=== PATIENT | female | born 1975 | race American Indian/Alaskan Native ===

== ENCOUNTER 2016-06-18 10:37 | Outpatient (CLI) | payer BC ==
--- NOTE | 2016-06-19 08:20 | Vascular Lab Report ---
LOWER EXTREMITY VENOUS DUPLEX: REASON FOR EXAM: Bilateral edema. COMMENTS ON THE RIGHT: All veins visualized are freely compressible without evidence of internal echogenicity. Flow is spontaneous and phasic throughout. COMMENTS ON THE LEFT: All veins visualized are freely compressible without evidence of internal echogenicity. Flow is spontaneous and phasic throughout. IMPRESSION: No evidence of acute or chronic deep venous thrombosis in either lower extremity.
== END 2016-06-18 10:38 | disposition home or self-care (01) ==
LOC: VAS 10:37
PROVIDERS: ATTEND Obstetrics & Gynecology
DX: R60.0 Localized edema (principal)
CPT/HCPCS: 93970

== ENCOUNTER 2017-05-02 12:41 | Day surgery (SDC) | payer BC ==
--- NOTE | 2017-05-01 21:03 | History and Physical Report ---
History of Present Illness Date of examination: 04/30/17 Chief complaint: Abnormal vaginal bleeding, cervical polyp History of present illness: Past History : 3 Term Births: 2 Living Children: 2 Para: 2 Prev : 2 Aborta: 1 Spont. 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 of genital herpes: no Partner hx. of genital herpes: no Hx of STD: none Active Medications (reviewed today): IBUPROFEN 800 MG ORAL TABLET (IBUPROFEN) 1 po TID (PRN) PROBIOTIC CAPSULE (SACCHAROMYCES BOULARDII CAPS) Current Allergies (reviewed today): No known allergies Past Medical History: Reviewed history from 08/14/2016 and no changes required: (L) TOA (05/2016) [facility] CT guided drainage Past Surgical History: Reviewed history from 03/10/2013 and no changes required: C-sectionx2 Myomectomy cervical cerclage D&C: Family History Summary: Reviewed history Last on 08/14/2016 and no changes required:05/01/2017 Mother (biol.) - Has Family History of Thyroid Disease - Entered On: 09/22/2015 Other family member - Has No Family History of Biliary Tract Cancer - Entered On : 09/22/2015 Other family member - Has No Family History of Breast Cancer - Entered On: 2015 Other family member - Has No Family History of Brain Cancer - Entered On: 2015 Other family member - Has No Family History of Colon Cancer - Entered On: 2015 Other family member - Has No Family History of DVT/PE on OCP - Entered On: 2015 Other family member - Has No Family History of Kidney/Urinary Tract Cancer - Entered On: 09/22/2015 Other family member - Has No Family History of Ovarvian Cancer - Entered On: Other family member - Has No Family History of Pancreatic Cancer - Entered On: Other family member - Has No Family History of Stomach Cancer - Entered On: 09/21 Other family member - Has No Family History of Small Bowel Cancer - Entered On: 09/22/2015 Other family member - Has No Family History of Uterine Cancer - Entered On: 09/21 PGM - Has Family History Breast Cancer - Entered On: 04/29/2017 General Comments - FH: No Family History of Colon Cancer No Family History of Ovarvian Cancer No Family History of DVT/PE on OCP Mother adopted Social History: Reviewed history from 04/23/2017 and no changes required: Patient is Smoking History: Patient has never smoked. Risk Factors: PAP Smear History: Date of Last PAP Smear: 09/22/2015 Previous Tobacco Use: Signed On 09/04/2016 Smoked Tobacco Use: Never smoker Drug use: no Previous Alcohol Use: Signed On - 09/04/2016 Alcohol use: yes Type: occ Drinks per day: <1 Exercise: yes Times per week: 2 Dietary Counseling: pn yes PAP Smear History: Date of Last PAP Smear: 09/22/2015 Review of Systems General Denies fever, chills, sweats, anorexia, fatigue, weakness, malaise, weight loss and sleep disorder. Complains of abnormal vaginal bleeding. Denies vaginal discharge, incontinence, dysuria, hematuria, urinary frequency, amenorrhea, menorrhagia, pelvic pain, genital sores, decreased libido , painful periods, painful sex, urinary urgency, hot flashes, vaginal dryness, vaginal itching and vaginal odor. CV Denies chest pains, palpitations, syncope, dyspnea on exertion, orthopnea, PND and peripheral edema. Resp Denies cough, dyspnea at rest, excessive sputum, hemoptysis, wheezing and pleurisy. GI Denies nausea, vomiting, diarrhea, constipation, change in bowel habits, abdominal pain, melena, hematochezia, jaundice, gas/bloating, indigestion/ heartburn, dysphagia and odynophagia. Endo Denies cold intolerance, heat intolerance, polydipsia, polyphagia, polyuria and unusual weight change. Breast Denies left breast lump, right breast lump, nipple discharge, bloody discharge from nipple, breast pain, abnormal mammogram and breast enlargement. MS Denies back pain, joint pain, joint swelling, muscle cramps, muscle weakness, stiffness, arthritis, sciatica, restless legs, leg pain at night and leg pain with exertion. Derm Denies rash, itching, dryness and suspicious lesions. Neuro Denies paralysis, paresthesias, headache, seizures, tremors, vertigo, transient blindness, frequent falls, frequent headaches and difficulty walking. Psych Denies depression, anxiety, irritability and mood swings. Eyes Denies blurring, diplopia, irritation, discharge, vision loss, eye pain and photophobia. ENT Denies earache, ear discharge, tinnitus, decreased hearing, nasal congestion, nosebleeds, sore throat and hoarseness. Allergy Denies urticaria, allergic rash, hay fever and recurrent infections. Heme Denies abnormal bruising, bleeding and enlarged lymph nodes. Physical Exam Other Exams Abdomen: soft, non-tender, no masses, Skin: no ulcers, xanthomas Extremities: no clubbing, cyanosis, or edema Genitourinary Exam Vagina: scant blood , no active bleeding Cervix: large polyp protruding from cervix Uterus: normal size and position, midline, mobile Adnexa: no masses or tenderness Impression & Recommendations: Problem # 1: Other specified abnormal uterine and vaginal bleeding (ICD-626.8) (OCI26-Z92.8) Diagnosis explained to patient . Questions answered. Discussed with patient various medical and surgical therapies common for treatment: Hormonal/medical therapy,endometrial ablation or hysterectomy. She desires hysteroscopy D&C, excison of polyp and other indicated procedures. She declines ablation at this time, she was informed her bleeding my persist or recur. Patient voiced understanding and agrees with plan of care Consent reviewed and signed . The risks and alternatives for this surgery were reviewed with the patient. She was informed of possible bleeding, infection, injury to bowel, bladder, ureters or other adjacent organs. The patient was instructed/informed the following: The normal length of hospital stay for this procedure. Nothing to eat or drink 6hours prior to surgery. Clear liquids the starting the evening before surgery. Pre-op instruction sheets given. Wound care instructions given. Infection precautions reviewed, patient to call for any signs or symptoms of infection. The usual discomforts associated with this procedure were detailed. Proper use of pain medicines was reviewed. Patient was given ample opportunity to have all her questions answered before signing informed consent. Problem # 2: Cervical polyp (ICD-622.7) ([id number]-B46.1) Medications Added to Medication List This Visit: 1) Ibuprofen 800 Mg Oral Tablet (Ibuprofen) .... 1 po tid (prn) Medications and Allergies Allergies Allergy/AdvReac Type Severity Reaction Status Date / Time No Known Allergies Allergy Unverified 06/18/16 10:37 Home Medications Medication Instructions Recorded Confirmed Last Taken Type Lactobacillus Combination No.8 1 tab PO DAILY 04/29/17 04/29/17 Unknown History [Adult Probiotic] Assessment and Plan - Patient Problems (1) Abnormal uterine bleeding (AUB) Status: Acute (2) Cervical polyp Status: Acute
[~2017-05-02 12:41] MED LIST: ANCEF/STERILE WATER 2 GM/20 ML 2 GM/20 ML SYRINGE IV NR; NACL 0.9% 1000 ML 1,000 ML IV SCH; PEPCID PO NR; VERSED IV NR
[2017-05-02] MEDS ORDERED: ZOFRAN ONE (13:47)
[2017-05-02] MEDS ORDERED: DIPRIVAN 10 MG/ML IV ONE ×2 (13:47→15:37)
[2017-05-02] MEDS ORDERED: DECADRON ONE (13:47)
[2017-05-02] MEDS ORDERED: XYLOCAINE MPF 2% ONE (13:47)
[2017-05-02] MEDS ORDERED: DILAUDID ONE (13:48)
[2017-05-02] MEDS ORDERED: NACL BACTERIOSTATIC INFILTRATI ONE (13:59)
--- NOTE | 2017-05-02 14:37 | Anesthesia Day of Surgery ---
Anesthesia Day of Surgery - Day of Surgery Patient Examined: Yes Patient H&P Reviewed: Yes Patient is NPO: Yes
--- NOTE | 2017-05-02 14:37 | Anesthesia Consultation ---
Anesthesia Consult and Med Hx Date of service: 05/02/17 - Airway Anesthetic Teeth Evaluation: Good ROM Head & Neck: Adequate Mental/Hyoid Distance: Adequate Mallampati Class: Class II Intubation Access Assessment: Probably Good - Pulmonary Exam CTA: Yes - Cardiac Exam Cardiac Exam: RRR - Pre-Operative Health Status ASA Pre-Surgery Classification: ASA2 Proposed Anesthetic Plan: General - Pulmonary Hx Smoking: Yes (marijuana weekly) Hx Asthma: No - Central Nervous System Hx Psychiatric Problems: No - Other Systems Hx Alcohol Use: Yes (SOCIALLY) Hx Substance Use: Yes (MARIJUANA 04/18/17) Hx Cancer: No
[2017-05-02] MEDS ORDERED: MORPHINE IV PRN ×2 (14:38)
[2017-05-02 14:39] LABS: Hematocrit 32.4 % (30.3-42.9); Hemoglobin 10.6 gm/dl (10.1-14.3)
[2017-05-02] MEDS ORDERED: SUBLIMAZE ONE (15:38)
[2017-05-02] MEDS ORDERED: TORADOL ONE (16:47)
--- NOTE | 2017-05-02 17:40 | Discharge Summary ---
Providers - Providers Date of discharge: 05/02/17 Attending physician: VIPUL BAILEY Primary care physician: MARY AYALA Hospitalization Condition: Good Procedures: Hysteroscopic polypectomy and D&C Hospital course: uncomplicated Disposition: DC-01 TO HOME OR SELFCARE - Discharge Diagnoses (1) Abnormal uterine bleeding (AUB) Status: Resolved (2) Endometrial mass Status: Acute Core Measure Documentation - Palliative Care Palliative Care/ Comfort Measures: Not Applicable - Core Measures Any of the following diagnoses?: none Exam - Constitutional Vitals: Temp Pulse Resp BP Pulse Ox 98.4 F 76 18 123/72 100 05/02/17 14:20 05/02/17 14:20 05/02/17 14:20 05/02/17 14:20 05/02/17 14:20 General appearance: Present: no acute distress - Respiratory Respiratory effort: normal - Cardiovascular Rhythm: regular Plan Activity: other (No sex) Weight Bearing Status: Full Weight Bearing Diet: regular Special Instructions: no heavy lifting (>25#) Follow up with: MARY AYALA MD [Primary Care Provider] - 7 Days VIPUL BAILEY MD [Staff Physician] - (As scheduled)
--- NOTE | 2017-05-02 17:45 | Operative Report ---
Operative Report Operative Report: Date: 05/02/2017 Preoperative diagnosis: 1. Abnormal uterine bleeding 2. Cervical polyp Postoperative diagnosis: 1. Abnormal uterine bleeding 2. Endometrial mass . Procedure: 1. Cervical dilation 2. Hysteroscopic excision of endometrial mass using the Myosure device 3. Uterine curettage Surgeon: Corrina Blount MD Oil Scout: [] Anesthesiologist: Kusum Juarez MD Anesthesia: Monitored anesthetic care EBL: Minimal Findings: 1. Uterus sounded to: 10cm 2. Large endometrial polyp protruding into the internal cervical os Distention medium: Normal Saline Fluid deficit: 0 mL Procedure: After risks, benefits, complications, consequences and alternatives for this procedure were explained, and patient voiced her understanding and her desire to proceed, she is taken to the OR and placed in the supine position. General anesthesia was induced. She was placed in the dorsolithotomy position. Exam under anesthesia was unremarkable. She was then prepped and draped in usual sterile fashion. Timeout was performed. Using a straight catheter the bladder was drained of a small amount of clear yellow urine. An operative speculum was introduced into the vagina. The anterior lip of the cervix was grasped with single-tooth tenaculum and the uterus was sounded to 10 cm. The cervix was progressively dilated to allow the operative hysteroscope. The above findings were noted. The stalk of the polyp was attached to the left lateral wall of the endometrial cavity. Both ostia of the fallopian tubes were visualized. Using the Myosure device, partial hysteroscopic excision of the mass was performed. The remainder of the lesion was grasped with the tissue forceps and removed. Uterine curettage was then performed. No obvious evidence of perforation was noted. The procedure was ended. The speculum and the tenaculum were removed. Hemostasis was noted. The Patricio catheter was removed. No bleeding from the tenaculum site was noted. Patient tolerated procedure well and taken to recovery room in stable condition.
[2017-05-02 18:53] VITALS: BP 119/72
--- NOTE | 2017-05-02 19:22 | Post Anesthesia Evaluation ---
- Post Anesthesia Evaluation Patient Participated: Yes Airway Patent: Yes Stable Respiratory Function: Yes Nausea/Vomiting: No Temp > 96.8F: Yes Pain Manageable: Yes Adequeate Hydration: Yes Anesthesia Complications: No Block Receding Appropriately: Not Applicable Patient on Ventilator: No
== END 2017-05-02 12:42 | disposition home or self-care (01) ==
LOC: OR 12:41
PROVIDERS: ATTEND Obstetrics & Gynecology
DX: N84.0 Polyp of corpus uteri (principal); N84.1 Polyp of cervix uteri; N93.8 Other specified abnormal uterine and vaginal bleeding; Z98.890 Other specified postprocedural states; Z91.048 Other nonmedicinal substance allergy status
CPT/HCPCS: 36415; 58558; 81025; 85014; 85018; 86850; 86900; 86901; 88305; C1782; J0690; J1100; J1170; J1885; J2250; J2405; J2704; J3010; J7030

== ENCOUNTER 2017-05-08 09:45 | Outpatient (CLI) | payer BC ==
--- NOTE | 2017-05-09 13:03 | Mammography Report ---
BILATERAL DIGITAL SCREENING MAMMOGRAM WITH CAD:05/08/17 10:00:00 CLINICAL: Baseline screening. FINDINGS: The breasts are heterogeneously dense, which may obscure small masses.No mass, architectural distortion or suspicious calcifications. IMPRESSION: No mammographic evidence of malignancy. BI-RADS CATEGORY: 1 -- Negative RECOMMENDATION: Routine mammographic screening in one year. ACR BI-RADS MAMMOGRAPHIC CODES: 0 = Needs additional imaging evaluation; 1 = Negative; 2 = Benign; 3 = Probably benign; 4 = Suspicious; 5 = Malignant; 6 = Known biopsy-proven malignancy COMMENT: 1. Dense breast tissue, i.e., adenosis, fibrocystic changes, etc., may obscure an underlying neoplasm. 2. Approximately 10% of cancers are not detected with mammography. 3. A negative mammography report should not delay biopsy if a clinically suspicious mass is present.
== END 2017-05-08 09:46 | disposition home or self-care (01) ==
LOC: MAMMO 09:45
PROVIDERS: ATTEND Obstetrics & Gynecology
DX: Z12.31 Encounter for screening mammogram for malignant neoplasm of breast (principal)
CPT/HCPCS: 77067; G0202

== ENCOUNTER 2020-06-27 05:58 | Day surgery (SDC) | payer BC, OTHER ==
[2020-06-21 12:00] LABS: Mean Corpuscular HGB Conc 29 % (30-34); Mean Corpuscular Volume 73 fl (79-97); Platelet Count 392 K/mm3 (140-440); Red Blood Count 3.97 M/mm3 (3.65-5.03)
[2020-06-21 12:06] LABS: Hematocrit 28.8 % (30.3-42.9); Hemoglobin 8.3 gm/dl (10.1-14.3); Red Cell Distribution Width 25.7 % (13.2-15.2)
--- NOTE | 2020-06-26 17:52 | History and Physical Report ---
History of Present Illness Date of examination: 06/21/20 Chief complaint: Abnormal Uterine bleeding, cervical and endometrial masses. History of present illness: Past History : 3 Term Births: 2 Living Children: 2 Para: 2 Prev : 2 Aborta: 1 Spont. 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 of genital herpes: no Partner hx. of genital herpes: no Hx of STD: none Active Medications (reviewed today): NATURAL HERBAL ORAL TABLET ([id number]) MULTIVITAMINS ORAL CAPSULE (MULTIPLE VITAMIN) Current Allergies (reviewed today): No known allergies Past Medical History: Reviewed history from 11/20/2018 and no changes required: (L) TOA (05/2016) [facility] CT guided drainage Past Surgical History: Reviewed history from 11/20/2018 and no changes required: C-sectionx2 Myomectomy cervical cerclage D&C: Hysteroscopy: (05/02/2017) with polypectomy (L) TOA (05/2016) [facility] CT guided drainage Family History Summary: Reviewed history Last on 04/28/2020 and no changes required:06/26/2020 PGM - Has Family History Breast Cancer - Entered On: 04/29/2017 Other Family Member - Has No Family History of Uterine Cancer - Entered On: 09/22/2015 Other Family Member - Has No Family History of Small Bowel Cancer - Entered On: 09/22/2015 Other Family Member - Has No Family History of Stomach Cancer - Entered On: 09/22/2015 Other Family Member - Has No Family History of Pancreatic Cancer - Entered On: 09/22/2015 Other Family Member - Has No Family History of Ovarvian Cancer - Entered On: 09/22/2015 Other Family Member - Has No Family History of Kidney/Urinary Tract Cancer - Entered On: 09/22/2015 Other Family Member - Has No Family History of DVT/PE on OCP - Entered On: 09/22/2015 Other Family Member - Has No Family History of Colon Cancer - Entered On: 09/22/2015 Other Family Member - Has No Family History of Brain Cancer - Entered On: 09/22/2015 Other Family Member - Has No Family History of Breast Cancer - Entered On: 09/22/2015 Other Family Member - Has No Family History of Biliary Tract Cancer - Entered On: 09/22/2015 Mother - Has Family History of Thyroid Disease - Entered On: 09/22/2015 General Comments - FH: No Family History of Colon Cancer No Family History of Ovarvian Cancer No Family History of DVT/PE on OCP Mother adopted Social History: Reviewed history from 04/23/2017 and no changes required: Patient is Smoking History: Patient has never smoked. Risk Factors: Smoked Tobacco Use: Never smoker Smokeless Tobacco Use: Never Drug use: no HIV high-risk behavior: no Alcohol use: yes Exercise: yes Seatbelt use: 100 % PAP Smear History: Date of Last PAP Smear: 01/01/2019 Previous Tobacco Use: Signed On 05/19/2020 Smoked Tobacco Use: Never smoker Smokeless Tobacco Use: Never Drug use: no HIV high-risk behavior: no Previous Alcohol Use: Signed On - 05/19/2020 Alcohol use: yes Type: occ Drinks per day: social Exercise: yes Times per week: 2 Seatbelt use: 100 % Dietary Counseling: pn yes Mammogram History: Date of Last Mammogram: 05/08/2017 PAP Smear History: Date of Last PAP Smear: 01/01/2019 Physical Exam Appearance: well developed, well nourished, no acute distress Other Exams Lungs: no rales, rhonchi, or wheezes Heart: S1, S2, no murmur, rub, or gallop Genitourinary Exam Vagina: declined Uterus: deferred for EUA Impression & Recommendations: Problem # 1: Excessive and frequent menstruation with irregular cycle (ICD- 626.6) (RVU58-P35.1) Her updated medication list for this problem includes: Multivitamins Oral Capsule (Multiple vitamin) She desires removal of cervical polyp with hysteroscopy and removal of endometrial mass wt D&C. She declines endometrial ablation at this time. Consent reviewed and signed . Possible laparoscopy or laparotomy explained to patient. The risks and alternatives for this surgery were reviewed with the patient. She was informed of possible bleeding, infection, injury to bowel, bladder, ureters or other adjacent organs. The patient was instructed/informed the following: The normal length of hospital stay for this procedure. Nothing to eat or drink after midnight the evening prior to surgery. Pre-op instruction sheets given. Patient to call for any signs or symptoms of infection. The usual discomforts associated with this procedure were detailed. Proper use of pain medicines was reviewed. Patient was given ample opportunity to have all her questions answered before signing informed consent. Problem # 2: Endometrial mass (ICD-236.0) (XII11-O61.0) Problem # 3: Cervical polyp (ICD-622.7) (FJQ72-C23.1) Problem # 4: Pelvic mass, Left lower quadrant (ICD-789.34) (ZCH47-T84.04) declines laparosocpy at this time Medications Added to Medication List This Visit: 1) Natural Herbal Oral Tablet ([id number]) Medications and Allergies Allergies Allergy/AdvReac Type Severity Reaction Status Date / Time band aids Allergy Rash Uncoded 06/21/20 16:52 Home Medications Medication Instructions Recorded Confirmed Last Taken Type No Known Home Medications [No 06/20/20 06/20/20 Unknown History Reported Home Medications] Active Meds: Active Medications Lactated Ringer's (Lactated Ringers) 1,000 mls @ 100 mls/hr IV DIRECT MICHAEL Stop: 06/27/20 23:59 Cefazolin Sodium (Ancef/Sterile Water 2 Gm/20 Ml) 2 gm in 20 mls @ 80 mls/hr IV PREOP NR; Protocol Stop: 06/27/20 23:59 Midazolam HCl (Midazolam 2 Mg/2 Ml Inj) 2 mg IV PREOP NR Stop: 06/27/20 23:00 Exam Vital Signs Temp Pulse Resp BP Pulse Ox 98.8 F 72 18 119/72 100 06/21/20 11:45 06/21/20 11:45 06/21/20 11:45 06/21/20 11:45 06/21/20 11:45 Results - Labs 06/21/20 11:30 Assessment and Plan - Patient Problems (1) Cervical polyp Status: Acute (2) Abnormal uterine bleeding (AUB) Status: Resolved (3) Endometrial mass Status: Resolved (4) Anemia Status: Chronic Qualifiers: Anemia type: iron deficiency
[~2020-06-27 05:58] MED LIST changes: -ANCEF/STERILE WATER 2 GM/20 ML 2 GM/20 ML SYRINGE IV NR; -NACL 0.9% 1000 ML 1,000 ML IV SCH; -PEPCID PO NR; -VERSED IV NR; +ceFAZolin/Water 2 GM/20 ML 2 GM/20 ML SYRINGE IV NR
[2020-06-27] MEDS ORDERED: LACTATED RINGERS 1,000 ML IV SCH (06:00)
[2020-06-27] MEDS ORDERED: MIDAZOLAM 2 MG/2 ML INJ IV NR (06:00)
[2020-06-27] MEDS ORDERED: oxyCODONE /ACETAMINOPHEN 5-325MG TAB PO PRN (07:17)
[2020-06-27] MEDS ORDERED: ONDANSETRON 4 MG/2 ML INJ IV PRN (07:17)
[2020-06-27] MEDS ORDERED: HYDROmorphone 1 MG/1 ML INJ IV PRN (07:17)
--- NOTE | 2020-06-27 07:17 | Anesthesia Consultation ---
Anesthesia Consult and Med Hx Date of service: 06/27/20 - Airway Anesthetic Teeth Evaluation: Good ROM Head & Neck: Adequate Mental/Hyoid Distance: Adequate Mallampati Class: Class II Intubation Access Assessment: Probably Good - Pulmonary Exam CTA: Yes - Cardiac Exam Cardiac Exam: RRR - Pre-Operative Health Status ASA Pre-Surgery Classification: ASA2 Proposed Anesthetic Plan: General - Pulmonary Hx Smoking: Yes (occasional THC) Hx Respiratory Symptoms: No - Cardiovascular System Hx Hypertension: No - Central Nervous System CVA: No - Endocrine Hx Renal Disease: No Hx Liver Disease: No Hx Insulin Dependent Diabetes: No Hx Non-Insulin Dependent Diabetes: No Hx Thyroid Disease: No - Hematic Hx Anemia: Yes - Other Systems Hx Alcohol Use: Yes (Occas) Hx Substance Use: Yes (occasional THC) Hx Obesity: No - Additional Comments Anesthesia Medical History Comments: No hx anesthetic complications.
--- NOTE | 2020-06-27 07:17 | Anesthesia Day of Surgery ---
Anesthesia Day of Surgery - Day of Surgery Patient Examined: Yes Patient H&P Reviewed: Yes Patient is NPO: Yes
[2020-06-27] MEDS ORDERED: SILVER NITRATE APPLICATOR 1 EA TP ONE (07:19)
[2020-06-27] MEDS ORDERED: dexAMETHasone 20 MG/5 ML VIAL ONE (07:32)
[2020-06-27] MEDS ORDERED: ONDANSETRON 4 MG/2 ML INJ ONE (07:32)
[2020-06-27] MEDS ORDERED: LIDOCAINE MPF (2%) 20 MG/1 ML VIAL 5 ML ONE (07:32)
[2020-06-27] MEDS ORDERED: fentaNYL 100 MCG/2 ML INJ ONE (07:33)
[2020-06-27] MEDS ORDERED: propofoL 200 MG/20 ML VIAL IV ONE (07:33)
[2020-06-27] MEDS ORDERED: FERRIC SUBSULFATE TOPICAL SOLN 8 ML TP ONE (07:49)
[2020-06-27] MEDS ORDERED: LACTATED RINGERS 1,000 ML ONE (09:02)
[2020-06-27] MEDS ORDERED: KETOROLAC 30 MG/1 ML INJ ONE (09:24)
--- NOTE | 2020-06-27 09:37 | Discharge Summary ---
Providers - Providers Date of discharge: 06/27/20 Attending physician: VIPUL BAILEY Primary care physician: PAINTER MIRROR Hospitalization Condition: Good Procedures: Cervical polypectomy, D&C, hysteroscopy Hospital course: Unremarkable Disposition: DC-01 TO HOME OR SELFCARE - Discharge Diagnoses (1) Cervical polyp Status: Resolved (2) Abnormal uterine bleeding (AUB) Status: Resolved (3) Endometrial mass Status: Resolved (4) Anemia Status: Chronic Qualifiers: Anemia type: iron deficiency Core Measure Documentation - Palliative Care Palliative Care/ Comfort Measures: Not Applicable - Core Measures Any of the following diagnoses?: none Exam - Constitutional Vitals: Temp Pulse Resp BP Pulse Ox 97 F L 62 20 114/66 100 06/27/20 09:13 06/27/20 09:30 06/27/20 09:30 06/27/20 09:30 06/27/20 09:30 General appearance: Present: no acute distress - Neck Neck: Present: supple - Respiratory Respiratory effort: normal - Cardiovascular Rhythm: regular - Extremities Extremities: no ischemia, No edema - Abdominal General gastrointestinal: Present: soft Female genitourinary: Present: normal - Psychiatric Psychiatric: appropriate mood/affect, intact judgment & insight, memory intact, cooperative - Neurologic Neurologic: CNII-XII intact Plan Activity: other (No sex x1week, no strenuous exercise or tennis x1week) Weight Bearing Status: Full Weight Bearing Diet: regular Follow up with: PRIMARY CARE, [Primary Care Provider] - 7 Days VIPUL BAILEY MD [Staff Physician] - (as directed) Prescriptions: Ibuprofen [Motrin 800 MG tab] 800 mg PO TID PRN #30 tablet PRN Reason: Pain oxyCODONE /ACETAMINOPHEN [Percocet 5/325 mg] 1 - 2 tab PO Q6HR PRN #7 tablet PRN Reason: Pain
--- NOTE | 2020-06-27 09:49 | Operative Report ---
Operative Report Operative Report: Date: 06/27/2020 PREOPERATIVE DIAGNOSES: 1. Excessive and frequent menstruation with irregular cycle 2. Large cervical polyp POSTOPERATIVE DIAGNOSES: 1. Excessive and frequent menstruation with irregular cycle 2. Large cervical polyp PROCEDURE PERFORMED: 1. Hysteroscopy. 2. Dilation and curettage (D&C) 3. Cervical polypectomy ANESTHESIA: General ESTIMATED BLOOD LOSS: Less than minimal cc. INDICATIONS: This is a 45-year-old female that presents excessive and frequent with irregular cycles probably due to large cervical polyp. No obvious abnormalities in the uterine cavity PROCEDURE: The patient was seen in the preoperative suite. Expected procedure and postoperative course discussed with her. She was taken to the operative suite where general was performed. She was placed in a dorsal lithotomy position. . A bimanual exam was done, the uterus was found to be 10. She was prepped and draped in the normal sterile fashion. Timeout was performed. Her bladder was drained with the red Eaton catheter which produced approximately 100 cc of clear yellow urine. The vulva was grossly normal with no obvious masses or deformities. A bivalve operative speculum was placed in the vagina and the anterior lip of the cervix was grasped with the single-tooth tenaculum. No vaginal abnormalities were noted. The uterus was sounded to ~10 cm. The cervix is very already dilated therefore the hysteroscope was introduced without any difficulty. Under direct visualization, the ostia were within normal limits. The endometrial lining appeared thin, there was no obvious evidence of malignancy. The base of the polyp was visualized on the posterior aspect of the internal cervical os. The hysteroscope was removed and a small sharp curette was placed intrauterine very carefully using anterior wall for guidance. Endometrial curettings were obtained. Endocervical polyp was grasped with ring forceps and twisted at its base. The polyp released in pieces and was sent to pathology. All specimens were placed on Telfa pads and sent to Pathology for evaluation, permanent in separate containers. The hysteroscope was introduced again, no evidence of perforation was noted. At this point procedure was ended. The single-tooth tenaculum and speculum were removed. The cervix was found to be hemostatic. Counts were correct. Patient tolerated procedure well. Patient was taken to the PACU stable. Distention fluid: Normal saline Deficit: 200 mL
[2020-06-27 10:16] VITALS: BP 118/70
--- NOTE | 2020-06-27 10:47 | Post Anesthesia Evaluation ---
- Post Anesthesia Evaluation Patient Participated: Yes Airway Patent: Yes Stable Respiratory Function: Yes Nausea/Vomiting: No Temp > 96.8F: Yes Pain Manageable: Yes Adequeate Hydration: Yes Anesthesia Complications: No
== END 2020-06-27 05:59 | disposition home or self-care (01) ==
LOC: OR 05:58
PROVIDERS: ATTEND Obstetrics & Gynecology
DX: N92.1 Excessive and frequent menstruation with irregular cycle (principal); N84.0 Polyp of corpus uteri; D64.9 Anemia, unspecified; N94.89 Other specified conditions associated with female genital organs and menstrual cycle; Z86.19 Personal history of other infectious and parasitic diseases; Z88.8 Allergy status to other drugs, medicaments and biological substances; Z79.899 Other long term (current) drug therapy; Z98.891 History of uterine scar from previous surgery; Z72.89 Other problems related to lifestyle; Z98.890 Other specified postprocedural states
CPT/HCPCS: 36415; 58558; 81025; 85027; 86850; 86900; 86901; 88305; J0690; J1100; J1885; J2250; J2405; J2704; J3010; J7120; U0003